=== PATIENT | female | born 1985 | race Caucasian/White ===

== ENCOUNTER 2019-05-23 14:30 | Outpatient (CLI) | payer BC | END 2019-05-23 15:22 | disposition home or self-care (01) | LOC: LC 14:30 | PROVIDERS: ATTEND Obstetrics & Gynecology | PROC: 4A1HXCZ Monitoring of Products of Conception, Cardiac Rate, External Approach (ICD-10-PCS; principal; 2019-05-23) | DX: O09.523 Supervision of elderly multigravida, third trimester (principal); Z3A.36 36 weeks gestation of pregnancy | CPT/HCPCS: 59025 ==

== ENCOUNTER 2019-06-05 06:31 | Inpatient (IN) | payer BC ==
--- NOTE | 2019-06-05 06:38 | Non Stress Test Report ---
Non Stress Test Datetime Report Generated by CPN: 06/05/2019 06:37 INDICATION Indication for Study (NST) Other: AMA VITAL SIGNS Temperature - NST: 97.6 Pulse - NST: 88 RESP - NST: 16 NBPSYS NST: 136 NBPDIA NST: 81 MONITORING Monitor Explained: Monitor Explained; Test Explained; Patient Verbalized Understanding Time on Monitor: 05/23/2019 14:46 Time off Monitor: 05/23/2019 15:17 NST Duration: 31 NST INTERVENTIONS Physician Notified NST: J Jones CNM BABY A: [id number] BABY A Movement : Present Contraction Frequency : 4-5 FHR Baseline : 135 Accelerations : 15X15 Decelerations : None Variability : Moderate 6-25bpm NST Review: Meets Criteria for Reactive NST NST Review and Verified By : Markel Feldman RN NST Results: Reactive NST REPORT Report Trigger: Send Report
[2019-06-05] MEDS ORDERED: RINGERS SOLUTION,LACTATED 1,000 ML IV PRN (06:44)
[2019-06-05 07:08] LABS: APPEARANCE,URINE CLOUDY; BILIRUBIN,URINE NEGATIVE (NEGATIVE); COLOR,URINE YELLOW; GLUCOSE, URINE NEGATIVE (NEGATIVE); KETONES,URINE NEGATIVE (NEGATIVE); LEUKOCYTE ESTERASE,URINE NEGATIVE (NEGATIVE); NITRITE,URINE NEGATIVE (NEGATIVE); PROTEIN,URINE 30 mg/dL (NEGATIVE); URINE SPECIFIC GRAVITY 1.006; UROBILINOGEN,URINE NEGATIVE mg/dL (<2.0)
[2019-06-05 07:23] LABS: URINE AMPHETAMINES SCREEN NEGATIVE; URINE BARBITURATES SCREEN NEGATIVE; URINE BENZODIAZEPINES SCREEN NEGATIVE; URINE COCAINE SCREEN NEGATIVE; URINE MARIJUANA (THC) SCREEN NEGATIVE; URINE METHADONE SCREEN NEGATIVE; URINE PHENCYCLIDINE SCREEN NEGATIVE
[2019-06-05 07:27] LABS: ABSOLUTE BASOPHILS # (AUTO) 0.1 10^3/uL (0.0-0.2); ABSOLUTE EOSINOPHILS # (AUTO) 0.1 10^3/uL (0.0-0.6); ABSOLUTE LYMPHOCYTES (AUTO) 2.3 10^3/uL (0.5-4.7); ABSOLUTE MONOCYTES (AUTO) 0.7 10^3/uL (0.1-1.4); ABSOLUTE NEUT (AUTO) 8.6 10^3/uL (1.7-8.2); BASOPHILS % (AUTO) 0.7 % (0-2); EOSINOPHILS % (AUTO) 0.9 % (0-6); LYMPHOCYTES % (AUTO) 19.7 % (13-45); MEAN CORPUSCULAR HEMOGLOBIN 30.9 pg (27.0-33.4); MEAN CORPUSCULAR HGB CONC 34.2 g/dL (32.0-36.0); MEAN CORPUSCULAR VOLUME 90 fl (80-97); MONOCYTES % (AUTO) 5.7 % (3-13); PLATELET COUNT 303 10^3/uL (150-450); RED BLOOD COUNT 4.21 10^6/uL (3.72-5.28); TOTAL CELLS COUNTED % (AUTO) 100 %; WHITE BLOOD COUNT 11.7 10^3/uL (4.0-10.5)
[2019-06-05] MEDS ORDERED: OXYTOCIN/NORMAL SALINE 20 UNIT/1,000 ML RTUINJ ONE (07:38)
[2019-06-05] MEDS ORDERED: OXYTOCIN 10 UNIT/ML VIAL ONE (07:38)
[2019-06-05] MEDS ORDERED: LIDOCAINE 1% INJ-PF (10 MG/ML) 30 ML SDV ONE (07:38)
[2019-06-05] MEDS ORDERED: MISOPROSTOL 0.2 MG TABLET ONE (07:38)
[2019-06-05] MEDS ORDERED: BENZOCAINE/MENTHOL AEROSOL SPRAY 56 ML TOP PRN (08:41)
[2019-06-05] MEDS ORDERED: MAGNESIUM HYDROXIDE SUSP 30 ML UDCUP PO PRN (08:41)
[2019-06-05] MEDS ORDERED: ACETAMINOPHEN WITH CODEINE #3 TABLET PO PRN ×2 (08:41)
[2019-06-05] MEDS ORDERED: OXYTOCIN/NORMAL SALINE 20 UNIT/1,000 ML RTUINJ IV PRN (08:41)
[2019-06-05] MEDS ORDERED: MEASLES,MUMPS&RUBELLA VACC/PF 0.5 ML VIAL SUBCUT PRN (08:41)
[2019-06-05] MEDS ORDERED: DIPH/PERTUSS(ACELL)/TETANUS VAC/PF 0.5 ML SYR (>=10YO) IM PRN (08:41)
[2019-06-05] MEDS ORDERED: DIPHENHYDRAMINE HCL 25 MG CAPSULE PO PRN (08:41)
[2019-06-05] MEDS ORDERED: PROMETHAZINE HCL 25 MG TABLET PO PRN (08:41)
[2019-06-05] MEDS ORDERED: DIBUCAINE 1% OINTMENT 28 GM TP PRN (08:41)
[2019-06-05] MEDS ORDERED: ZOLPIDEM TARTRATE 5 MG TABLET PO PRN (08:41)
[2019-06-05] MEDS ORDERED: NA PHOS,M-B/NA PHOS,DI-BA (ADULT) 133 ML ENEMA PR PRN (08:41)
[2019-06-05] MEDS ORDERED: GLYCERIN/WITCH HAZEL LEAF 1 EACH MED..WIPE TP PRN (08:41)
[2019-06-05] MEDS ORDERED: ACETAMINOPHEN 650 MG SUPP.RECT PR PRN (08:41)
[2019-06-05] MEDS ORDERED: PROMETHAZINE HCL 25 MG SUPP.RECT PR PRN (08:41)
[2019-06-05] MEDS ORDERED: PROMETHAZINE HCL INJ 25 MG/1 ML VIAL IV PRN (08:41)
[2019-06-05] MEDS ORDERED: PSEUDOEPHEDRINE HCL 30 MG TABLET PO PRN (08:41)
--- NOTE | 2019-06-05 08:52 | Admission Physical ---
Datetime Report Generated by CPN: 06/05/2019 08:51 CURRENT ADMISSION Hx Assessment: The History has been Reviewed and is Current Chief Complaint: Uterine Contractions; Suspected Ruptured Membranes Chief Complaint Other: Reports SROM at 0330 clear Regular painful ctx Admit Impression : Term, Intrauterine ; Ruptured Membranes Admit Plan: Admit to Unit; Initiate Labor Protocol ALLERGIES Medication Allergies: No Medication Allergies: No Known Allergies (05/23/2019) OBSTETRICAL HISTORY EDC: 06/11/2019 00:00 : 2 Para: 1 Term: 1 : 0 SAB: 0 IAB: 0 Ectopic: 0 Livin Cesareans: 0 VBACs: 0 Multiple Births: 0 Gestational Diabetes: No Rh Sensitization: No Incompetent Cervix: No JANIS: No Infertility: No ART Treatment: No Uterine Anomaly: No IUGR: No Hx Previous C/S: No Macrosomia: No Hx Loss/Stillborn: No PIH: No Hx : No Placenta Previa/Abruption: No Depression/PP Depression: No PTL/PROM: No Post Hemorrhage: No Current Procedures: Ultrasound Obstetrical History Comments: G1: 38.4 8 lbs 6oz G2: current: AMA antepartum testing @ 34 weeks SEE RECORDS Alcohol: No Marijuana : No Cocaine: No Other Illicit Drugs: No Cigarettes: Former Smoker. [id number] Cigarette Comments: former smoker 5 years ago. 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 Heart Disease: No Hosp/Surgery: No Autoimmune Disorder: No Anesthetic Complications: No Kidney Disease: No Abnormal Pap Smear: No Neuro/Epilepsy: No Psychiatric Disorders: No Other Medical Diseases: No Hepatitis/Liver Disease: No Significant Family History: No Varicosities/Phlebitis: No Trauma/Violence : No Thyroid Dysfunction: No Medical History Comments: 2007 wisdom teeth; 2016 childbirth anxiety- self diagnosed no meds; abd pap, colpo no treatment INFECTIOUS HISTORY Gonorrhea: No Genital Herpes: No Chlamydia: No Tuberculosis: No Syphilis: No Hepatitis: No HIV/AIDS Exposure: No Rash or Viral Illness: No HPV: No PHYSICAL EXAM General: Normal HEENT: Normal Neurologic: Normal Thyroid: Normal Heart: Normal Lungs: Normal Breast: Normal Back: Normal Abdomen: Normal Genitourinary Exam: Normal Extremities: Normal DTRs: Normal Pelvic Type: Adequate Vital Signs: Reviewed VAGINAL EXAM Dilatation: 7 Effacement: 100 Station: -1 Contraction Comments: regular MEMBRANES Membranes: Intact FETUS A EGA: 39.1 Monitoring: External US FHR- Baseline: 140 Variability: Moderate 6-25bpm Accelerations: 15X15 Decelerations: None FHR Category: Category I Admit Comment: at 39.1 wks EGA in active labor -Admit to LDR -CEFM and toco -VS Q 1 hr -SROM'd GBS neg -NPO and IVFs: LR at 125 cc -anticipate ( Hx one prior ) PLANS FOR LABOR AND DELIVERY Labor and Delivery: Plan Pain Management: Natural Other Pain Management Plans: hypnobirth Feeding Preference: Breast Circumcision: N/A INFORMED CONSENT Informed Consent Obtained: Vaginal Delivery; Risks, Benefits and Alternatives Discussed Signature: with User ID: Tamara : with User ID: Tamara
[2019-06-05] MEDS ORDERED: IBUPROFEN 800 MG TABLET ONE (09:01)
[2019-06-05] MEDS ORDERED: BENZOCAINE/MENTHOL AEROSOL SPRAY 56 ML ONE (09:01)
[2019-06-05] MEDS ORDERED: IBUPROFEN 800 MG TABLET PO SCH (14:00)
[2019-06-05] MEDS: FAMOTIDINE 20 MG TABLET PO SCH ×2 (14:42→21:50)
[2019-06-05] MEDS: DOCUSATE SODIUM 100 MG CAPSULE PO SCH ×2 (14:42→17:39)
[2019-06-05] MEDS: PRENATAL VITAMIN W DHA CAPSULE PO SCH (14:42)
[2019-06-05] MEDS: FERROUS SULFATE 325 MG TABLET PO SCH ×2 (14:42→17:39)
[2019-06-05] MEDS: SENNOSIDES/DOCUSATE 8.6-50 MG 1 EACH TABLET PO SCH (14:42)
[2019-06-05] MEDS: IBUPROFEN 800 MG TABLET PO SCH (17:40)
[2019-06-06] MEDS: IBUPROFEN 800 MG TABLET PO SCH ×3 (01:40→18:17)
[2019-06-06 07:59] LABS: HEMATOCRIT 28.6 % (36.0-47.0); MEAN CORPUSCULAR HEMOGLOBIN 31.4 pg (27.0-33.4); MEAN CORPUSCULAR HGB CONC 34.5 g/dL (32.0-36.0); MEAN CORPUSCULAR VOLUME 91 fl (80-97); PLATELET COUNT 232 10^3/uL (150-450); RED BLOOD COUNT 3.15 10^6/uL (3.72-5.28); WHITE BLOOD COUNT 13.4 10^3/uL (4.0-10.5)
[2019-06-06 08:04] LABS: HEMOGLOBIN 9.9 g/dL (12.0-15.5)
[2019-06-06] MEDS: PRENATAL VITAMIN W DHA CAPSULE PO SCH (09:37)
[2019-06-06] MEDS: SENNOSIDES/DOCUSATE 8.6-50 MG 1 EACH TABLET PO SCH (09:37)
[2019-06-06] MEDS: FERROUS SULFATE 325 MG TABLET PO SCH ×2 (09:37→18:17)
[2019-06-06] MEDS: DOCUSATE SODIUM 100 MG CAPSULE PO SCH ×2 (09:37→18:17)
[2019-06-06] MEDS: FAMOTIDINE 20 MG TABLET PO SCH ×2 (09:38→23:05)
--- NOTE | 2019-06-06 10:24 | PDOC PROGRESS REPORT ---
Subjective-OB Progress Note for:: 06/06/19 Subjective: reports bleeding slowing, pain controlled with current meds. denies needs Physical Exam (OB) Vital Signs: Temp Pulse Resp BP Pulse Ox 97.8 F 75 16 115/70 99 06/06/19 07:21 06/06/19 07:21 06/06/19 07:21 06/06/19 07:21 06/06/19 07:21 Intake & Output 06/05/19 06/06/19 06/07/19 06:59 06:59 06:59 Intake Total 300 Balance 300 - Abdomen Description: Soft Hernia Present: No Fundal Description: Firm, Midline Fundal Height: u/u - u/2 - Abdominal Distension: No distension Tenderness: Nontender - Extremities Lower extremities: Tamar's sign - neg Calf: Normal, Nontender Objective-Diagnostic Laboratory: 06/06/19 07:10 06/06/19 07:10 WBC 13.4 H RBC 3.15 L Hgb 9.9 L D Hct 28.6 L MCV 91 MCH 31.4 MCHC 34.5 RDW 13.0 Plt Count 232 Assessment and Plan(PN) - Assessment and Plan (1) PROM (premature rupture of membranes) Is this a current diagnosis for this admission?: Yes (2) Vaginal delivery Is this a current diagnosis for this admission?: Yes - Time Spent with Patient Time with patient: Less than 15 minutes - Disposition Anticipated Discharge: Home Within: within 24 hours
[2019-06-07] MEDS: IBUPROFEN 800 MG TABLET PO SCH ×2 (02:08→09:55)
--- NOTE | 2019-06-07 09:27 | PDOC DISCHARGE SUMMARY ---
Impression - Admit/DC Date/PCP Admission Date/Primary Care Provider: 06/05/19 06:43 ANA PAULA TORRES MD Discharge Date: 06/07/19 - Discharge Diagnosis (1) Vaginal delivery Is this a current diagnosis for this admission?: Yes - Additional Information Resuscitation Status: Full Code Discharge Diet: Regular Discharge Activity: Balance Activity w/Rest, Pelvic Rest Referrals: ANA PAULA TORRES MD [Primary Care Provider] - Prescriptions: Ibuprofen [Motrin 800 mg Tablet] 800 mg PO Q8HP PRN #60 tablet PRN Reason: Home Medications: Vits96/Iron Fum/Folic [ Tablet] 1 tab PO DAILY 06/05/19 Ibuprofen [Motrin 800 mg Tablet] 800 mg PO Q8HP PRN #60 tablet 06/07/19 HPI Gestational Age: 39.1 Reason(s) for Admission: Onset of Labor Procedures: NST Intrapartum Procedure(s): Spontaneous Vaginal Delivery Complication(s): Laceration-Perineal Laceration-Degree: 2nd Results Laboratory Results: WBC 13.4 10^3/uL (4.0-10.5) H 06/06/19 07:10 RBC 3.15 10^6/uL (3.72-5.28) L 06/06/19 07:10 Hgb 9.9 g/dL (12.0-15.5) L D 06/06/19 07:10 Hct 28.6 % (36.0-47.0) L 06/06/19 07:10 MCV 91 fl (80-97) 06/06/19 07:10 MCH 31.4 pg (27.0-33.4) 06/06/19 07:10 MCHC 34.5 g/dL (32.0-36.0) 06/06/19 07:10 RDW 13.0 % (11.5-14.0) 06/06/19 07:10 Plt Count 232 10^3/uL (150-450) 06/06/19 07:10 Lymph % (Auto) 19.7 % (13-45) 06/05/19 07:09 [place] % (Auto) 5.7 % (3-13) 06/05/19 07:09 Eos % (Auto) 0.9 % (0-6) 06/05/19 07:09 Baso % (Auto) 0.7 % (0-2) 06/05/19 07:09 Absolute Neuts (auto) 8.6 10^3/uL (1.7-8.2) H 06/05/19 07:09 Absolute Lymphs (auto) 2.3 10^3/uL (0.5-4.7) 06/05/19 07:09 Absolute Monos (auto) 0.7 10^3/uL (0.1-1.4) 06/05/19 07:09 Absolute Eos (auto) 0.1 10^3/uL (0.0-0.6) 06/05/19 07:09 Absolute Basos (auto) 0.1 10^3/uL (0.0-0.2) 06/05/19 07:09 Seg Neutrophils % 73.0 % (42-78) 06/05/19 07:09 Urine Color YELLOW 06/05/19 06:45 Urine Appearance CLOUDY 06/05/19 06:45 Urine pH 7.0 (5.0-9.0) 06/05/19 06:45 Ur Specific [place] 1.006 06/05/19 06:45 Urine Protein 30 mg/dL (NEGATIVE) H 06/05/19 06:45 Urine Glucose (UA) NEGATIVE mg/dL (NEGATIVE) 06/05/19 06:45 Urine Ketones NEGATIVE mg/dL (NEGATIVE) 06/05/19 06:45 Urine Blood LARGE (NEGATIVE) H 06/05/19 06:45 Urine Nitrite NEGATIVE (NEGATIVE) 06/05/19 06:45 Urine Bilirubin NEGATIVE (NEGATIVE) 06/05/19 06:45 Urine Urobilinogen NEGATIVE mg/dL (<2.0) 06/05/19 06:45 Ur Leukocyte Esterase NEGATIVE (NEGATIVE) 06/05/19 06:45 Urine Ascorbic Acid NEGATIVE (NEGATIVE) 06/05/19 06:45 Urine Opiates Screen NEGATIVE 06/05/19 06:45 Urine Methadone Screen NEGATIVE 06/05/19 06:45 Ur Barbiturates Screen NEGATIVE 06/05/19 06:45 Ur Phencyclidine Scrn NEGATIVE 06/05/19 06:45 Ur Amphetamines Screen NEGATIVE 06/05/19 06:45 U Benzodiazepines Scrn NEGATIVE 06/05/19 06:45 Urine Cocaine Screen NEGATIVE 06/05/19 06:45 U Marijuana (THC) Screen NEGATIVE 06/05/19 06:45 RPR NONREACTIVE (NONREACTIVE) 06/05/19 07:09 Blood Type O POSITIVE 06/05/19 07:09 Antibody Screen NEGATIVE 06/05/19 07:09 Plan Plan of Treatment: f/u at [facility] in 4 wks Time Spent: Less than 30 Minutes
[2019-06-07] MEDS: SENNOSIDES/DOCUSATE 8.6-50 MG 1 EACH TABLET PO SCH (09:55)
[2019-06-07] MEDS: DOCUSATE SODIUM 100 MG CAPSULE PO SCH (09:55)
[2019-06-07] MEDS: FERROUS SULFATE 325 MG TABLET PO SCH (09:55)
[2019-06-07] MEDS: PRENATAL VITAMIN W DHA CAPSULE PO SCH (09:55)
[2019-06-07] MEDS: FAMOTIDINE 20 MG TABLET PO SCH (09:59)
[2019-06-07 10:10] VITALS: BP 108/71
--- NOTE | 2019-06-09 08:52 | Delivery Summary ---
Del Sum A-C Datetime Report Generated by CPN: 06/09/2019 08:51 DELIVERY PERSONNEL DELIVERY PERSONNEL: [id number] Delivery Doctor:: Tiffany Fletcher MD Labor and Delivery Nurse:: Earline Guajardo RNnegative assembler Nurse:: Jennie Krishnamurthy RN Tonsorial Artist/TUNNEL KILN OPERATOR: Clair Jeffers, MAINTENANCE DATA ANALYST MATERNAL INFORMATION Delivery Anesthesia: None Medications After Delivery: Pitocin Drip 20 Units/1000ml NSS Estimated Blood Loss (ml): 400 Maternal Complications: None LABOR SUMMARY EDC: 06/11/2019 00:00 No. Babies in Womb: 1 Attempted: No Labor Anesthesia: None LABOR INFORMATION Reason for Induction: Not Applicable Onset of Labor: 06/05/2019 03:30 Complete Dilatation: 06/05/2019 07:53 Oxytocin: N/A Group B Beta Strep: negative Steroids Given: None Reason Steroids Not Administered: Not Applicable MEMBRANES Membranes Rupture Method: Spontaneous Rupture of Membranes: 06/05/2019 03:30 Length of Rupture (hr): 4.60 Amniotic Fluid Color: Clear Amniotic Fluid Amount: Moderate Amniotic Fluid Odor: Normal STAGES OF LABOR Stage 1 hr: 4 Stage 1 min: 23 Stage 2 hr: 0 Stage 2 min: 13 Stage 3 hr: 0 Stage 3 min: 4 Total Time in Labor hr: 4 Total Time in Labor min: 40 VAGINAL DELIVERY Episiotomy: None Laceration #1: Perineal Laceration Extension #1: Second Degree Sponge Count Correct: Yes Sharps Count Correct: Yes CSECTION DELIVERY Primary Indication: N/A Secondary Indication: N/A CSection Incidence: N/A Labor: N/A Elective: N/A CSection Incision: N/A BABY A INFORMATION Delivery Date/Time: 06/05/2019 08:06 Method of Delivery: Vaginal Method of Delivery: Vaginal Born in Route : No : N/A Forceps: N/A Vacuum Extraction: N/A Shoulder Dystocia : No PRESENTATION/POSITION BABY A Presentation: Cephalic Cephalic Presentation: Vertex Vertex Position: Right Occipital Anterior Breech Presentation: N/A PLACENTA INFORMATION BABY A Placenta Delivery Time : 06/05/2019 08:10 Placenta Method of Delivery: Spontaneous Placenta Status: Delivered SCORES BABY A Heart Rate 1 min: >100 bpm Resp Effort 1 min: Good Cry Reflex Irritability 1 min: Cough or Sneeze or Pulls Away Muscle Tone 1 min: Active Motion Color 1 min: Body [place], Extremities Blue Resuscitation Effort 1 min: Tactile Stimulation SCORE 1 MIN: 9 Heart Rate 5 min: >100 bpm Resp Effort 5 min: Good Cry Reflex Irritability 5 min: Cough or Sneeze or Pulls Away Muscle Tone 5 min: Active Motion Color 5 min: Body [place], Extremities Blue Resuscitation Effort 5 min: N/A SCORE 5 MIN: 9 INFORMATION BABY A Gestational Age at Delivery: 39.1 Gestational Status: Full Term- 39- 40.6 Weeks Infant Outcome : Liveborn Condition : Stable Infant Sex: Female Infant Sex: Female IDENTIFICATION BABY A Infant Verification Date/Time: 06/05/2019 08:14 ID Band Number: [id number] Mother's Name Verified: Yes RN Verifying Infant: R Bennett RN Additional Verifying Personnel: [facility] MAINTENANCE DATA ANALYST WEIGHT/LENGTH BABY A Infant Birthweight (gm): 3883 Weight (lb): 8 Weight (oz): 9 Length (in): 20.00 Length (cm): 50.80 CORD INFORMATION BABY A No. Cord Vessels: 3 Nuchal Cord : N/A Cord Blood Taken: Yes-For Storage (Mom's Blood type +) Infant Suction: Mouth ASSESSMENT BABY A Infant Complications: None Physical Findings at Delivery: Bruising Physical Findings- Other: facial bruising Infant Respirations: Appears Normal Skin to Skin: Yes Asian Art Curator/ALS Called : No Care By: B Baidy RN Transferred To: Remains with Mother BABY B INFORMATION : N/A
== END 2019-06-07 12:45 | disposition home or self-care (01) | DRG 807 ==
LOC: LC 06:31 → LR 06:43 → 2S 10:25 → 2N 18:59
PROVIDERS: ADMIT Obstetrics & Gynecology; ATTEND Obstetrics & Gynecology
PROC: 10E0XZZ Delivery of Products of Conception, External Approach (ICD-10-PCS; principal; 2019-06-05)
PROC: 0KQM0ZZ Repair Perineum Muscle, Open Approach (ICD-10-PCS; 2019-06-05)
DX: O70.1 Second degree perineal laceration during delivery (principal); Z37.0 Single live birth; Z3A.39 39 weeks gestation of pregnancy
CPT/HCPCS: 36415; 80307; 81005; 85025; 85027; 86592; 86850; 86900; 86901; J2590; J3490

== ENCOUNTER 2019-11-28 11:34 | Emergency (ER) | payer BC ==
--- NOTE | 2019-11-28 11:51 | ER Document Report ---
ED Medical Screen (RME) - General Chief Complaint: Leg Pain Stated Complaint: LEG PAIN Time Seen by Provider: 11/28/19 11:45 Primary Care Provider: ANA PAULA TORRES MD [Primary Care Provider] - Follow up as needed Mode of Arrival: Ambulatory Information source: Patient Notes: 34-year-old female presented to ED for knot to the left posterior calf. She states she went to the urgent care and they told her to come to the emergency room to get a venous Doppler to rule out a DVT. She states it just started today. She states she did go for car trip there where she was in a car for couple hours but is been a couple weeks ago. She states she does workout 5 times a week. She states she has not had any injuries to the leg. She is alert oriented respirations regular nonlabored speaking in full sentences. She does walk with a even steady gait. She states it is tender to palpation. She does not smoke drink or use any drugs. She does have an IUD. She states she does have a history of anxiety and a fractured wrist when she was a child was still surgery. I have greeted and performed a rapid initial assessment of this patient. A comprehensive ED assessment and evaluation of the patient, analysis of test results and completion of medical decision making process will be conducted by an additional ED providers. TRAVEL OUTSIDE OF THE [place] IN LAST 30 DAYS: No - Related Data Allergies/Adverse Reactions: No Known Allergies Allergy (Verified 05/23/19 14:37) Past Medical History - Social History Frequency of alcohol use: None Drug Abuse: None Physical Exam - Vital signs Vitals: Temp Pulse Resp BP Pulse Ox 98.2 F 86 20 129/76 H 96 11/28/19 11:38 11/28/19 11:38 11/28/19 11:38 11/28/19 11:38 11/28/19 11:38 Course - Vital Signs Vital signs: Temp Pulse Resp BP Pulse Ox 98.2 F 86 20 129/76 H 96 11/28/19 11:38 11/28/19 11:38 11/28/19 11:38 11/28/19 11:38 11/28/19 11:38 Doctor's Discharge - Discharge Referrals: ANA PAULA TORRES MD [Primary Care Provider] - Follow up as needed
--- NOTE | 2019-11-28 12:59 | ER Document Report ---
ED Extremity Problem, Lower - General Chief Complaint: Leg Pain Stated Complaint: LEG PAIN Time Seen by Provider: 11/28/19 11:45 Primary Care Provider: ANA PAULA TORRES MD [ACTIVE STAFF] - Follow up as needed Mode of Arrival: Ambulatory Information source: Patient Notes: Patient presents complaining of left calf pain with a tender palpable knot to the calf. Patient notices area today. Patient was seen at an urgent care and advised to come here for evaluation for possible DVT. Patient denies any recent travel, bedrest or immobilization. Patient denies any chest pain or dyspnea. Patient denies any previous history of DVT or PE. TRAVEL OUTSIDE OF THE [place] IN LAST 30 DAYS: No - HPI Patient complains to provider of: Pain Location: Leg Occurred: This morning Onset/Duration: Gradual Quality of pain: Achy Pain Level: 2 Context: denies: Direct blow, Recent immobilization, Recent surgery, Recent travel Associated symptoms: Other - Left calf Exacerbated by: Movement, Walking Relieved by: Rest - Related Data Allergies/Adverse Reactions: No Known Allergies Allergy (Verified 05/23/19 14:37) Past Medical History - General Information source: Patient - Social History Smoking Status: Never Smoker Frequency of alcohol use: None Drug Abuse: None Occupation: None Lives with: Family Family History: Reviewed & Not Pertinent - Medical History Medical History: Negative Surgical Hx: Negative Review of Systems - Review of Systems Constitutional: No symptoms reported. denies: Fever EENT: No symptoms reported Cardiovascular: No symptoms reported. denies: Chest pain Respiratory: No symptoms reported. denies: Cough, Short of breath Gastrointestinal: No symptoms reported Genitourinary: No symptoms reported Female Genitourinary: No symptoms reported Musculoskeletal: Muscle pain - Left calf tenderness Skin: No symptoms reported Hematologic/Lymphatic: No symptoms reported Neurological/Psychological: No symptoms reported Physical Exam - Vital signs Vitals: Temp Pulse Resp BP Pulse Ox 98.2 F 86 20 129/76 H 96 11/28/19 11:38 11/28/19 11:38 11/28/19 11:38 11/28/19 11:38 11/28/19 11:38 - HEENT Head: Normocephalic, Atraumatic Eyes: Normal Nasal: Normal Mouth/Lips: Normal Neck: Normal, Supple - Respiratory Respiratory status: No respiratory distress Chest status: Nontender Breath sounds: Normal. No: Rales, Rhonchi, Stridor, Wheezing Chest palpation: Normal - Cardiovascular Rhythm: Regular. No: Tachycardia Heart sounds: S1 appreciated, S2 appreciated Pulses: Normal: Dorsalis pedis - Extremities General upper extremity: Normal inspection, Normal ROM General lower extremity: Normal inspection, Normal ROM Calf: Tender - Mildly tender nodular lesion to the left calf, no overlying eryt lena, no obvious edema - Neurological Neuro grossly intact: Yes Cognition: Normal [place] Coma Scale Eye Opening: Spontaneous [place] Coma Scale Verbal: Oriented [place] Coma Scale Motor: Obeys Commands Margaux Coma Scale Total: 15 - Psychological Associated symptoms: Normal affect, Normal mood - Skin Skin Temperature: Warm Skin Moisture: Dry Skin Color: Normal Course - Re-evaluation Re-evalutation: 11/28/19 14:21 Doppler study reviewed, no concern for any DVT. Patient with normal skin color temperature, no concern for cellulitis or developing abscess at this time. Patient encouraged to follow-up with her primary doctor for recheck. Patient advised of worsening signs or symptoms that she should return immediately for. Patient verbalized understanding and is agreeable with discharge plan of care. - Vital Signs Vital signs: Temp Pulse Resp BP Pulse Ox 99.1 F 57 L 16 114/69 100 11/28/19 14:24 11/28/19 14:24 11/28/19 14:24 11/28/19 14:24 11/28/19 14:24 - Diagnostic Test Radiology reviewed: Reports reviewed Discharge - Discharge Clinical Impression: Pain of left calf Condition: Stable Disposition: HOME, SELF-CARE Instructions: Muscle Relaxers ([facility]), Muscle Strain ([facility]) Additional Instructions: Return immediately for any new or worsening symptoms Followup with your primary care provider, call tomorrow to make a followup appointment Prescriptions: Cyclobenzaprine HCl [Flexeril 10 Mg Tablet] 10 mg PO TID #15 tablet Naproxen [Naprosyn 250 Nmg Tablet] 1 tab PO BID #14 tablet Referrals: ANA PAULA TORRES MD [ACTIVE STAFF] - Follow up as needed
--- NOTE | 2019-11-28 13:56 | RADIOLOGY REPORT (SQ) ---
EXAM DESCRIPTION: VENOUS UNILATERAL LOWER IMAGES COMPLETED DATE/TIME: 11/28/2019 1:47 pm REASON FOR STUDY: knot left lower leg COMPARISON: None. TECHNIQUE: Dynamic and static madden scale and color images acquired of the left leg venous system. Se lected spectral images acquired with additional compression and augmentation maneuvers. The contralat eral common femoral vein and saphenofemoral junction were also imaged. Images stored on PACS. LIMITATIONS: None. FINDINGS: COMMON FEMORAL: Normal phasicity, compression and augmentation. No visualized echogenic ma terial on madden scale. No defects on color images. FEMORAL: Normal compression and augmentation. No visualized echogenic material on madden scale. No defe cts on color images. POPLITEAL: Normal compression, augmentation. No visualized echogenic material on madden scale. No defec ts on color images. CALF VESSELS: Normal compression, augmentation. No visualized echogenic material on madden scale. No de fects on color images. GSV and SSV: Normal compression, augmentation. No visualized echogenic material on madden scale. No def ects on color images. ANY DEEP VENOUS INSUFFICIENCY: Not evaluated. ANY EVIDENCE OF POPLITEAL CYST: No. OTHER: No other significant finding. CONTRALATERAL COMMON FEMORAL VEIN AND SAPHENOFEMORAL JUNCTION: Normal phasicity, compression and augmentation. No visualized echogenic material on madden scale. No de fects on color images. IMPRESSION: NO EVIDENCE DVT OR SVT IN THE LEFT LEG. TECHNICAL DOCUMENTATION: JOB ID: [id number] 2010 [employer]- All Rights Reserved Reading location - IP/workstation name: [email or web address]
[2019-11-28 14:24] VITALS: BP 114/69
== END 2019-11-28 14:24 | disposition home or self-care (01) ==
LOC: ER 11:34
DX: M79.605 Pain in left leg (principal)
CPT/HCPCS: 93971; 99284